=== PATIENT | male | born 1960 | race Two or more races ===

== ENCOUNTER 2020-04-04 21:22 | Emergency (ER) | payer MEDICAID ==
[~2020-04-04] VITALS: Ht 175.3 cm; Wt 130.2 kg
[2020-04-04 21:39] VITALS: BP 173/79
[2020-04-04] MEDS ORDERED: CIPROFLOX-DEXA7.5 ML OT (22:05)
[2020-04-04 22:12] VITALS: BP 173/79
--- NOTE | 2020-04-04 22:24 | Emergency Room Report ---
History of Present Illness General Chief Complaint: Earache Source: Patient Present Illness HPI Disclaimer: Please note that this report is being documented using [employer] technology. This can lead to erroneous entry secondary to incorrect interpretation by the dictating instrument. HPI: 60-year-old male presents for evaluation of bleeding from the left ear. He states 2 days ago was cleaning his ear with a Q-tip and felt a sudden sharp pain. No further pain until this afternoon when he felt a pop and started bleeding from the left ear as he was walking down the street. Denies direct trauma. He reports decreased hearing on the left side. No changes on the r ight. Denies changes in equilibrium, tinnitus, fever, chills, jaw pain. No prior history of eustachian tubes or other ear issues. No further bleeding since the initial incident. PMH: Denied PSH: Reviewed Allergies: Denied Social Hx: Denied Allergies: Coded Allergies: No Known Allergies (Unverified , 04/04/20) COVID-19 Screening Contact w/high risk pt: No Experienced COVID-19 symptoms?: No COVID-19 Testing performed P[employer]ER: Yes - 02/17/20 COVID-19 Screening: Negative COVID-19 COVID-19 Testing Source: [facility] Nursing Documentation-PMH Hx Hypertension: Yes Review of Systems All Other Systems: negative except mentioned in HPI Physical Exam Vital Signs Date Time Temp Pulse Resp B/P (MAP) Pulse Ox O2 Delivery O2 Flow Rate FiO2 04/04/20 21:27 98.1 75 18 173/79 (110) 94 Room Air General: Awake and alert, no acute distress HEENT: NC/AT. EOMI. dry tympanic membrane is pearly kasper, nonbulging, no hemotympanum, no effusion. Left external auditory canal grossly bloody but no brisk or active bleeding seen. A portion of tympanic membrane appears ruptured 3 o'clock position with surrounding dried blood. Gross decrease in hearing acuity on the left side as compared to right. Resp: Normal work of breathing Skin: Intact. No abrasions, laceration or rash over the exposed skin MSK: Normal tone and bulk. Moving all extremities. No obvious deformity. Neuro: Awake and alert. Mentating appropriately Medical Decision Making Diagnostic Impression: Primary Impression: Perforated tympanic membrane ER Course 60-year-old male presents for evaluation of bleeding from the left ear. Appears to have a spontaneous rupture of his left tympanic membrane. Denies preceding signs of infection though did have a small trauma 2 days ago. Unclear whether or not this is related however will appears to have a small perforation and will treat with antibiotic drops and refer to ENT. Will call his PMD in the morning for referral. No purulent drainage or signs of otitis media otherwise. Otherwise well-appearing and stable for outpatient follow-up. Instructed to return with new or worsening symptoms. He understands and agrees with this treatment plan. Last Vital Signs Date Time Temp Pulse Resp B/P (MAP) Pulse Ox O2 Delivery O2 Flow Rate FiO2 04/04/20 21:39 98.1 18 173/79 94 Room Air 04/04/20 21:27 75 Disposition: HOME, SELF-CARE Condition: Stable Scripts Ciprofloxacin HCl/Dexameth (Ciproflox-Dexameth Otic Susp) 7.5 Ml Drops.susp 7.5 ML OT BID for 10 Days, #150 ML Prov: Blanco Mathias MD 04/04/20 Referrals: [facility] Patient Instructions: Eardrum Perforation Additional Instructions: Use the antibiotic medications as prescribed. Keep the ear dry and do not go sw imming or underwater. Follow-up with an nuclear weapons custodian as soon as possible. Talk to your primary doctor on Monday for referral to ear nose throat specialist. Return to the emergency department with new or worsening symptoms. lBanco Mathias MD Apr 04, 2020 22:24
== END 2020-04-04 22:12 | disposition home or self-care (01) ==
LOC: EMR 22:01
DX: H72.92 Unspecified perforation of tympanic membrane, left ear (principal); I10 Essential (primary) hypertension
CPT/HCPCS: 99282